=== PATIENT | male | born 1940 | race Hispanic/Latino ===

== ENCOUNTER 2021-07-01 16:51 | Outpatient (CLI) | payer MEDICARE | END 2021-07-01 16:52 | disposition home or self-care (01) | LOC: CSHWCC 16:51 | PROVIDERS: ATTEND Nurse Practitioner Family | DX: T81.89XA Other complications of procedures, not elsewhere classified, initial encounter (principal); E03.9 Hypothyroidism, unspecified; E11.65 Type 2 diabetes mellitus with hyperglycemia; E78.2 Mixed hyperlipidemia; G89.11 Acute pain due to trauma; R25.8 Other abnormal involuntary movements; T81.32XS Disruption of internal operation (surgical) wound, not elsewhere classified, sequela | CPT/HCPCS: 97139; 97607; G0463; 99203 ==